=== PATIENT | female | born 1950 | race Caucasian/White ===

== ENCOUNTER 2016-11-22 11:49 | Emergency (ER) | payer MEDICARE ==
[~2016-11-22] VITALS: Ht 167.6 cm; Wt 90.0 kg
[2016-11-22 11:52] VITALS: Ht 167.6 cm; Wt 90.0 kg
[2016-11-22] MEDS ORDERED: ONDANSETRON 4 MG INJ IV STA (13:03)
[2016-11-22] MEDS ORDERED: SOD CHLORIDE 0.9% 500 ML IV STA (13:03)
[2016-11-22] MEDS ORDERED: morphine 4 MG/ML VIAL IV STA (13:03)
[2016-11-22] MEDS ORDERED: OXYCODONE/ACETAMINOPHEN (5/325) TAB PO ONE (13:30)
[2016-11-22 13:37] LABS: ADD SCAN DIFF NO
[2016-11-22 13:41] LABS: BASOPHIL # 0.1 10^3/ul (0.0-0.1); BASOPHILS % 0.3 % (0.0-2.0); EOSINOPHILS # 0.3 10^3/ul (0.0-0.5); HEMATOCRIT 41.9 % (37.0-47.0); HEMOGLOBIN 13.6 g/dl (12.0-16.0); LYMPHOCYTES # 2.1 10^3/ul (0.8-2.9); LYMPHOCYTES % 14.2 % (15.0-51.0); MEAN CORPUSCULAR HEMOGLOBIN 26.7 pg (29.0-33.0); MEAN CORPUSCULAR HGB CONC 32.5 g/dl (32.0-37.0); MEAN CORPUSCULAR VOLUME 82.3 fl (82.0-101.0); MEAN PLATELET VOLUME 9.5 fl (7.4-10.4); MONOCYTE # 0.8 10^3/ul (0.3-0.9); MONOCYTES % 5.2 % (0.0-11.0); NEUTROPHIL # 11.3 10^3/ul (1.6-7.5); NEUTROPHILS % 77.7 % (39.0-77.0); PLATELET COUNT 261 10^3/UL (140-415); RED BLOOD COUNT 5.09 10^6/ul (4.20-5.40); RED CELL DISTRIBUTION WIDTH 15.8 % (11.5-14.5); WHITE BLOOD COUNT 14.5 10^3/ul (4.8-10.8)
[2016-11-22 14:01] LABS: ALANINE AMINOTRANSFERASE 23 IU/L (13-69); ALBUMIN 4.5 g/dl (3.3-4.9); ALKALINE PHOSPHATASE 150 IU/L (42-121); ANION GAP 16 (8-16); ASPARTATE AMINO TRANSFERASE 21 IU/L (15-46); BILIRUBIN,INDIRECT 0.3 mg/dl (0-1.1); BILIRUBIN,TOTAL 0.3 mg/dl (0.2-1.3); BLOOD UREA NITROGEN 18 mg/dl (7-20); CALCIUM 9.4 mg/dl (8.4-10.2); CARBON DIOXIDE 22 mmol/L (21-31); CHLORIDE 104 mmol/L (97-110); CREATININE 1.73 mg/dl (0.44-1.00); GLUCOSE 175 mg/dl (70-220); POTASSIUM 4.7 mmol/L (3.5-5.1); SODIUM 137 mmol/L (135-144); TOTAL PROTEIN 7.7 g/dl (6.1-8.1)
--- NOTE | 2016-11-22 14:02 | RADRPT ---
PROCEDURE: CT Brain without contrast. CLINICAL INDICATION: Head trauma status post fall. Hit back of the head. TECHNIQUE: A CT of the brain was performed on a multidetector CT scanner utilizing axial sections from the skull base through the vertex without contrast. Images were reviewed on a high-resolution [employer] workstation. Exam CTDI = 43.58 mGy and the DLP = 720.23 mGy-cm. One or more of the following dose reduction techniques were used: Automated exposure control Adjustment of the mA and/or kV according to patient size. Use of iterative reconstruction technique. COMPARISON: None available FINDINGS: Mild diffuse cerebral and cerebellar atrophy is present. There is proportionate dilatation of the v entricular system and sulci in a symmetric fashion. There is prominence of the extraaxial spaces sec ondary to atrophy. There is no evidence of intracranial hemorrhage, mass effect or midline shift. Th ere is chronic lacunar infarct in the right basal ganglia. No abnormal intra-axial or extra-axial fl uid collections are seen. The density of the brain is normal and the palomino/white matter differentiat ion is well preserved. Mild patchy diffuse deep white matter microangiopathic ischemic change is se en. The osseous structures are unremarkable. Paranasal sinuses are clear. Vascular calcification s are identified. IMPRESSION: 1. No intracranial hemorrhage, mass effect or midline shift. 2. Mild generalized atrophy. Mild microangiopathic ischemic change. Chronic lacunar infarct in the right basal ganglia. 3. Intracranial atherosclerosis. RPTAT: BB .Damaris Umaña MD, MD Date Time Electronically viewed and signed by .Damaris Umaña MD, on 11/22/2016 14:01 .O/
[2016-11-22 14:13] LABS: TROPONIN-I < 0.012 ng/ml (0.00-0.12)
[2016-11-22 15:41] LABS: ADD UMIC YES; UR BLOOD (Dip) NEGATIVE (NEGATIVE); UR CLARITY CLEAR (CLEAR); UR COLOR YELLOW (YELLOW); UR GLUCOSE (Dip) NEGATIVE (NEGATIVE); UR KETONES (Dip) NEGATIVE (NEGATIVE); UR LEUKOCYTE ESTERASE (Dip) NEGATIVE (NEGATIVE); UR NITRITE (Dip) NEGATIVE (NEGATIVE); UR TOTAL PROTEIN (Dip) 2+ (NEGATIVE); UR UROBILINOGEN (Dip) 0.2 E.U./dL (0.1-1.0)
[2016-11-22 15:52] LABS: UR BILIRUBIN (Dip) NEGATIVE (NEGATIVE)
[2016-11-22 15:53] LABS: URINE RBCS NONE SEEN /HPF (0)
[2016-11-22 15:54] LABS: UR SQUAMOUS EPITHELIAL CELL FEW /HPF (FEW)
[2016-11-22] MEDS ORDERED: IBUP-1542 PO (16:41)
[2016-11-22 16:53] VITALS: BP 104/71; PULSE 60; RESP 18
--- NOTE | 2016-11-22 19:39 | ERD ---
ER Documentation Chief Complaint Date/Time DATE: 11/22/16 TIME: 19:30 Chief Complaint fall from bed to floor buttucks and back hurt no ko HPI 66-year-old woman rolled off her bed this morning and struck her scalp against the wooden portion of the bed frame on the side. She complains of dizziness after the episode. She denies loss of consciousness and denies chest pain, back pain, or lower extremity pain. She denies neck pain, she denies paresis or paresthesias, no complaints of chest pain or shortness of breath. She is requesting analgesics and states she has a follow-up appointment with her PMD tomorrow morning. ROS All systems reviewed and are negative except as per history of present illness. Medications Home Meds Active Scripts Ibuprofen* (Motrin*) 600 Mg Tab, 600 MG PO Q8 for PAIN AND/OR INFLAMMATION, #30 TAB Prov:XAVIER TOM MD 11/22/16 PMhx/Soc Hx Alcohol Use: Yes Hx Substance Use: No Hx Tobacco Use: No Smoking Status: Never smoker FmHx Family History: No diabetes Physical Exam Vitals Vital Signs Date Time Temp Pulse Resp B/P Pulse Ox O2 Delivery O2 Flow Rate FiO2 11/22/16 16:53 60 18 104/71 99 Room Air 11/22/16 11:52 98.1 72 18 135/85 97 Physical Exam GENERAL: Well-developed, well-nourished, well-hydrated, in no apparent distress , looks nontoxic in appearance HEENT: Moist mucous membranes, pink conjunctiva, no cervical spine tenderness or step-off deformities, no goiter, no jaundice or icterus, extraocular movements intact without pain. No submandibular induration, and no pharyngeal erythema NEURO: Alert and oriented 3, cranial nerves II through XII intact bilaterally, pupils equal round reactive to light, no focal deficits or facial asymmetry, sensation intact distally Strength 5/5 in upper and lower extremities bilaterally CARDIAC: Regular rate and rhythm, no murmurs rubs or gallops LUNGS: Clear bilaterally no wheezing crackles or stridor ABDOMEN: Soft nontender, no guarding, no rigidity, no rebound, no psoas sign no obturator sign. Normoactive bowel sounds SKIN: Warm and dry to touch, no abrasions, contusions, or hematomas, no lacerations, no ecchymosis, no target lesions, and without ulcers EXTREMITIES: No clubbing cyanosis or edema, calves are bilaterally symmetrical, no Homans sign, no popliteal cord sign. Distal pulses equal and bilateral PSYCH: Normal affect without agitation or irritability Result Diagram: 11/22/16 1320 11/22/16 1320 Results 24 hrs Laboratory Tests Test 11/22/16 13:20 11/22/16 13:27 White Blood Count 14.510^3/ul Red Blood Count 5.0910^6/ul Hemoglobin 13.6g/dl Hematocrit 41.9% Mean Corpuscular Volume 82.3fl Mean Corpuscular Hemoglobin 26.7pg Mean Corpuscular Hemoglobin Concent 32.5g/dl Red Cell Distribution Width 15.8% Platelet Count 43861^3/UL Mean Platelet Volume 9.5fl Neutrophils % 77.7% Lymphocytes % 14.2% Monocytes % 5.2% Eosinophils % 2.0% Basophils % 0.3% Nucleated Red Blood Cells % 0.0/100WBC Neutrophils # 11.310^3/ul Lymphocytes # 2.110^3/ul Monocytes # 0.810^3/ul Eosinophils # 0.310^3/ul Basophils # 0.110^3/ul Nucleated Red Blood Cells # 0.010^3/ul Sodium Level 137mmol/L Potassium Level 4.7mmol/L Chloride Level 104mmol/L Carbon Dioxide Level 22mmol/L Anion Gap 16 Blood Urea Nitrogen 18mg/dl Creatinine 1.73mg/dl Glucose Level 175mg/dl Calcium Level 9.4mg/dl Total Bilirubin 0.3mg/dl Direct Bilirubin 0.00mg/dl Indirect Bilirubin 0.3mg/dl Aspartate Amino Transf (AST/SGOT) 21IU/L Alanine Aminotransferase (ALT/SGPT) 23IU/L Alkaline Phosphatase 150IU/L Troponin I < 0.012ng/ml Total Protein 7.7g/dl Albumin 4.5g/dl Globulin 3.20g/dl Albumin/Globulin Ratio 1.40 Lipase 34U/L Urine Color YELLOW Urine Clarity CLEAR Urine pH Urine Specific [place] Urine Ketones NEGATIVE Urine Nitrite NEGATIVE Urine Bilirubin NEGATIVE Urine Urobilinogen 0.2 E.U./dL Urine Leukocyte Esterase NEGATIVE Urine Microscopic RBC NONE SEEN/HPF Urine Microscopic WBC NONE SEEN/HPF Urine Squamous Epithelial Cells FEW/HPF Urine Hyaline Casts RARE/HPF Urine Hemoglobin NEGATIVE Urine Glucose NEGATIVE% Urine Total Protein 2+ Current Medications Medications (Trade) Dose Ordered Sig/Masood Route PRN Reason Start Time Stop Time Status Last Admin Dose Admin Oxycodone/ Acetaminophen 1 tab 1 tab ONCE ONCE PO 11/22/16 13:30 11/22/16 13:31 DC 11/22/16 13:20 Sodium Chloride (NS) 500 ml @ 500 mls/hr Q1H STAT IV 11/22/16 13:03 11/22/16 14:02 DC 11/22/16 13:20 Morphine Sulfate (morphine) 4 mg ONCE STAT IV 11/22/16 13:03 11/22/16 13:06 DC 11/22/16 13:21 Ondansetron HCl (Zofran Inj) 4 mg ONCE STAT IV 11/22/16 13:03 11/22/16 13:06 DC 11/22/16 13:19 Procedures/MDM IV line was established patient was placed on cardiac rehabilitation program director rhythm strip revealed a sinus rhythm at about 70 bpm with upright P and T waves. Patient was afebrile. I administered 500 cc normal saline intravenously, morphine 4 mg IV, Zofran [address] scan of the brain was negative for acute bleed mass or shift. EKG performed, read by me: 65 bpm, normal sinus rhythm, normal axis, no acute ST segment changes, narrow QRS complex, with good R-wave progression in precordial leads. CBC revealed a leukocytosis of 15, electrolytes revealed dehydration with a BUN/ creatinine of 18/1.7, liver function tests normal, troponin negative. Urine analysis was negative for infection. Differential diagnoses considered, included but not limited to acute coronary syndrome, pulmonary embolism, aortic dissection, abdominal aortic aneurysm, sepsis, stroke, meningitis, encephalitis, pneumonia, appendicitis, cholecystitis , bowel obstruction, pyelonephritis, nephrolithiasis, cystitis, as well as metabolic, hematologic, and electrolyte abnormalities. As well as abscess, cellulitis, fractures, and dislocations. Patient feels much better at this time, and vital signs are normal, symptoms have improved. I did give strict instructions to return to the ED if symptoms continue or worsen, patient will otherwise follow-up with primary care physician. Patient understood instructions and agreed to plan. Disclaimer: Inadvertent spelling or grammatical errors are likely due to EHR/ dictation software use and do not reflect on the overall quality of patient care. Departure Diagnosis: Primary Impression: Fall Encounter type: initial encounter Qualified Code: W19.XXXA - Fall, initial encounter Additional Impressions: Scalp contusion Dizziness Dehydration Condition: Good Patient Instructions: Scalp Contusion, No Wake Up, Fall, Mechanical, Fall Prevention XAVIER TOM MD Nov 22, 2016 19:39
== END 2016-11-22 16:47 | disposition home or self-care (01) ==
LOC: FTE 11:49
DX: S00.03XA Contusion of scalp, initial encounter (principal); R42 Dizziness and giddiness; E86.0 Dehydration; W06.XXXA Fall from bed, initial encounter; Y92.9 Unspecified place or not applicable
CPT/HCPCS: 36415; 70450; 80053; 81001; 83690; 84484; 85025; 93005; 96374; 96375; 99285; J2270; J2405; J7040